=== PATIENT | male | born 1940 | race Caucasian/White ===

== ENCOUNTER → 2018-02-14 07:19 | Outpatient (CLI) | payer MEDICARE, BC, SELFPAY ==
[2018-02-14 10:41] LABS: Anion Gap 7 (5-15); BUN 17 mg/dL (7-18); BUN/Creat Ratio 18.7 RATIO (10-20); Calcium,Total 8.7 mg/dL (8.5-10.1); Chloride 106 mmol/L (98-107); Cholesterol 200 mg/dL (200); Creatinine, Serum 0.91 mg/dL (0.70-1.30); EST Glomerular Filtration Rate 86 mL/min (>60); Est Glom Filt Rate - Afr Amer 103 mL/min (>60); Glucose 107 mg/dL (74-106); High Density Lipoprotein 49 mg/dL; PSA,Total - Annual Screen 1.81 ng/mL (0.00-4.00); Potassium 4.3 mmol/L (3.5-5.1); Sodium Level 141 mmol/L (136-145); Triglycerides 60 mg/dL; Very Low Density Lipoprotein 12 mg/dL (5-40)
== END ==
PROVIDERS: Family Provider Family Medicine; PCP Family Medicine; Visit Provider Family Medicine
DX: I10 Essential (primary) hypertension (principal); N40.0 Benign prostatic hyperplasia without lower urinary tract symptoms; Z12.5 Encounter for screening for malignant neoplasm of prostate
CPT/HCPCS: 36415; 80048; 80061; 84153; G0103

== ENCOUNTER → 2018-04-12 14:08 | Outpatient (CLI) | payer MEDICARE, BC, SELFPAY ==
--- NOTE | 2018-04-12 | MISC_PTH ---
PATIENT: MARGIE LOPEZ LOC: [facility] U#:[id number] AGE/SX: 84/M ROOM: RE04/12/[address]: Dr. Vince Mac DDS : 1940 BED: DIS: SPEC #: [id number] RECD: 04/12/18 14:41 STATUS: [place] HELENA #: [id number] JOSÉ ANTONIO: 04/12/18 00:[address]: Vince Mac DEPT: SURGICAL PATHOLOGY RECD BY: Chevy Cordoba ENTERED: 04/12/18 14:42 SP TYPE: MISC NICK DR: Dr. Cleveland Rodriguez MD Tissues: Buccal mucosa, NOS Procedures: Special Stain Group I Surgery Specimen Level IV GMS Stain (control) HEADER OPERATION: Buccal (cheek) biopsy PRE-OP DIAGNOSIS: Left cheek lesion TISSUE SUBMITTED: Left buccal mucosa ? previous path MICROSCOPIC DIAGNOSIS Left buccal mucosa, biopsy: Fragment of squamous mucosa with acute and chronic inflammation and pseudoepitheliomatous hyperplasia. Negative for malignancy. Special stain for fungi is negative for organisms; matched control is appropriate. See comment. PATRICK:maninder 04/15/18 COMMENT Please make reference to previous specimen ([id number]) left cheek, biopsy with diagnosis of benign epidermal hyperplasia, chronic superficial dermatitis, no evidence of malignancy and negative for fungal organisms. MICROSCOPIC DESCRIPTION Slides are reviewed. GROSS DESCRIPTION Received in fixative is one container labeled with the patient's name and designated left cheek. The specimen consists of a piece of delong mucosal tissue measuring 1 x 0.3 cm and up to 0.5 cm in depth. The specimen is inked and submitted entirely in one cassette. / PATRICK:maninder 04/12/18 TC:2 CPT: 45806, [id number]
== END ==
PROVIDERS: Family Provider Family Medicine; PCP Family Medicine; Visit Provider Dentist Oral and Maxillofacial Surgery
DX: L98.9 Disorder of the skin and subcutaneous tissue, unspecified (principal)
CPT/HCPCS: 88305; 88312

== ENCOUNTER → 2018-08-12 08:47 | Outpatient (CLI) | payer MEDICARE, BC, SELFPAY ==
[2018-08-12 10:49] LABS: Anion Gap 4 (5-15); BUN 19 mg/dL (7-18); BUN/Creat Ratio 24.5 RATIO (10-20); Calcium,Total 8.8 mg/dL (8.5-10.1); Chloride 107 mmol/L (98-107); Creatinine, Serum 0.77 mg/dL (0.70-1.30); EST Glomerular Filtration Rate 103 mL/min (>60); Est Glom Filt Rate - Afr Amer 124 mL/min (>60); Glucose 103 mg/dL (74-106); Potassium 4.3 mmol/L (3.5-5.1); Sodium Level 142 mmol/L (136-145)
== END ==
PROVIDERS: Family Provider Family Medicine; PCP Family Medicine; Visit Provider Family Medicine
DX: I10 Essential (primary) hypertension (principal)
CPT/HCPCS: 36415; 80048

== ENCOUNTER → 2019-03-03 07:18 | Outpatient (CLI) | payer MEDICARE, BC, SELFPAY ==
[2019-03-03 10:15] LABS: Hematocrit 41.8 % (40-54); Hemoglobin 14.2 g/dl (13.0-16.5); Mean Corpuscular Hgb 29.6 pg (27.0-32.0); Mean Corpuscular Volume 87.3 fL (80-94); Mean Platelet Vol. 9.3 fl (6.2-12.0); Platelet Count 145 K/mm3 (150-450); RBC Distribution Width CV 13.6 % (11.6-14.6); RBC Distribution Width SD 42.3 fl (35.1-43.9); Red Blood Count 4.79 M/mm3 (4.6-6.2); White Blood Count 2.8 K/mm3 (4.4-11.0)
[2019-03-03 10:31] LABS: Scan Indicated on CBC? Y/N NO
[2019-03-03 10:39] LABS: Anion Gap 5 (5-15); BUN 18 mg/dL (7-18); BUN/Creat Ratio 18.8 RATIO (10-20); Calcium,Total 8.8 mg/dL (8.5-10.1); Chloride 102 mmol/L (98-107); Creatinine, Serum 0.96 mg/dL (0.70-1.30); EST Glomerular Filtration Rate 80 mL/min (>60); Est Glom Filt Rate - Afr Amer 97 mL/min (>60); Glucose 110 mg/dL (74-106); Potassium 4.2 mmol/L (3.5-5.1); Sodium Level 136 mmol/L (136-145); Thyroid Stim Hormone (TSH) 1.56 uIU/mL (0.358-3.74)
[2019-03-04 11:14] LABS: Magnesium 2.1 mg/dL (1.6-2.6)
== END ==
PROVIDERS: Family Provider Family Medicine; PCP Family Medicine; Referring Provider Family Medicine; Visit Provider Family Medicine
DX: R53.83 Other fatigue (principal)
CPT/HCPCS: 36415; 80048; 82306; 83735; 84443; 85027

== ENCOUNTER → 2019-03-11 | Outpatient (CLI) | payer MEDICARE, BC, SELFPAY ==
[2019-03-11 10:55] LABS: Magnesium 2.2 mg/dL (1.6-2.6)
[2019-03-11 10:59] LABS: Erythrocyte Sedimentation Rate 3 mm/hr (0-20)
== END | disposition home or self-care (01) ==
PROVIDERS: Family Provider Family Medicine; PCP Family Medicine; Referring Provider Family Medicine; Visit Provider Family Medicine
DX: R25.2 Cramp and spasm (principal)
CPT/HCPCS: 36415; 83735; 85652

== ENCOUNTER → 2019-07-24 15:31 | Outpatient (CLI) | payer MEDICARE, BC, SELFPAY ==
--- NOTE | 2019-07-24 15:34 | MRI_ITS ---
STUDY: MRI BRAIN WITHOUT CONTRAST REASON FOR EXAM: Male, 78 years old. Memory impairment for several months TECHNIQUE: Standardized multiplanar fat and water weighted pulse sequences were obtained. COMPARISON: None. FINDINGS: Mild atrophy and periventricular white matter ischemic changes without mass effect or restricted diffusion.. Normal bilateral basal ganglia. Normal thalami. There is no extra-axial fluid accumulation. Normal flow voids within the major intracranial circulation suggesting patency by spin echo criteria. Normal sella turcica, pituitary gland, infundibular stalk, optic chiasm and hypothalamus. Normal tectal plate and pineal gland. Normal midbrain, tree and medulla. Normal cerebellum. Normal basal cisterns. Normal bilateral temporal bones. Normal bilateral internal auditory canals. No demonstrated orbital abnormality, within the constraints of a routine brain study. Mild mucosal thickening of the anterior ethmoid and frontal sinuses.. Normal calvarium and skull base. Normal visualized soft tissue structures. Normal visualized upper cervical spine. MRI/Brain without Contrast IMPRESSION: Mild atrophy and periventricular white matter ischemic changes without evidence for acute infarct. Electronically Signed: Jose Newman MD at 17:10 EDT , Service support ,
== END ==
PROVIDERS: Family Provider Family Medicine; PCP Family Medicine; Referring Provider Family Medicine; Visit Provider Family Medicine
DX: R41.3 Other amnesia (principal)
CPT/HCPCS: 70551

== ENCOUNTER → 2019-09-23 10:14 | Outpatient (CLI) | payer MEDICARE, BC, SELFPAY ==
--- NOTE | 2019-09-23 10:14 | RAD_ITS ---
STUDY: X-RAY CHEST REASON FOR EXAM: Male, 78 years old. patient complains of cough x 1 month TECHNIQUE: PA and lateral views of the chest. COMPARISON: 10/06/2010 FINDINGS: Lungs are hyperexpanded. Granulomata of the right lung stable. There is no demonstrated pleural abnormality. Normal size heart. There are calcified right hilar lymph nodes. Normal visualized pulmonary arteries. There is atherosclerotic tortuosity of the aortic arch and descending thoracic aorta. There are diffuse degenerative changes of the visualized thoracic spine. Normal visualized ribs, clavicles, and shoulders. There is no demonstrated abnormality of the visualized soft tissue structures of the upper abdomen. RAD/Chest PA and Lateral IMPRESSION: No acute cardiopulmonary process. Hyperinflation suggesting chronic obstructive airway disease. Electronically Signed: Cj Abdalla MD (Bro[place]) at 16:10 EST , Service support ,
== END ==
PROVIDERS: Family Provider Family Medicine; PCP Family Medicine; Referring Provider Family Medicine; Visit Provider Family Medicine
DX: R05 Cough (principal)
CPT/HCPCS: 71046

== ENCOUNTER → 2020-01-12 14:35 | Outpatient (CLI) | payer MEDICARE, BC, SELFPAY ==
[2020-01-12 17:51] LABS: Absolute Lymphocyte Count 0.21 X10^3/uL (0.83-4.51); Absolute Neutrophil Count 2.3 X10^3/uL (2.0-7.7); Eosinophil# 0.02 X10^3/uL; Eosinophils% 0.7 % (0-5); Hematocrit 37.9 % (40-54); Hemoglobin 11.9 g/dL (13.0-16.5); Lymphocyte # 0.21 X10^3/ul (4.0); Lymphocyte % 7.1 % (19-41); Mean Corp Hgb Conc 31.4 g/dL (32-36); Mean Corpuscular Volume 89.2 fL (80-94); Mean Platelet Vol. 9.3 fl (6.2-12.0); Monocyte# 0.42 X10^3/uL; Monocyte% 14.3 % (0-10); NRBC Flagged by Analyzer 0 % (0-5); Neutrophil # 2.26 X10^3/uL (2.7-7.7); Neutrophil % 76.9 % (47-70); POSITIVE DIFFERENTIAL YES; Platelet Count 111 K/mm3 (150-450); RBC Distribution Width CV 14.3 % (11.6-14.6); RBC Distribution Width SD 46.5 fl (35.1-43.9); Red Blood Count 4.25 M/mm3 (4.6-6.2); White Blood Count 2.9 K/mm3 (4.4-11.0)
[2020-01-12 17:53] LABS: Differential Indicated SCAN CRITERIA MET
[2020-01-12 18:07] LABS: Erythrocyte Sedimentation Rate 9 mm/hr (0-20)
[2020-01-12 18:13] LABS: Vitamin B12 465 pg/mL (211-911); Vitamin D,25 Hydroxy 29.4 ng/mL
[2020-01-12 18:18] LABS: ALB/GLOB Ratio 1.1 RATIO (0.9-2.4); AST(SGOT) 123 U/L (15-37); Alanine Aminotransfer ALT/SGPT 124 U/L (16-61); Albumin, Serum 3.7 g/dL (3.2-5.0); Alkaline Phosphatase 195 U/L (45-117); Anion Gap 7 (5-15); BUN 17 mg/dL (7-18); BUN/Creat Ratio 16.8 RATIO (10-20); CPK Total, Creatine Kinase 132 U/L (39-308); Calcium,Total 8.6 mg/dL (8.5-10.1); Chloride 101 mmol/L (98-107); Creatinine, Serum 1.01 mg/dL (0.70-1.30); EST Glomerular Filtration Rate 75 mL/min (>60); Est Glom Filt Rate - Afr Amer 91 mL/min (>60); Globulin 3.3 g/dL (2.2-4.2); Glucose 93 mg/dL (74-106); Iron 31 ug/dL (65-175); Potassium 4.1 mmol/L (3.5-5.1); Sodium Level 135 mmol/L (136-145); Thyroid Stim Hormone (TSH) 1.05 uIU/mL (0.358-3.74)
[2020-01-12 18:23] LABS: Differential Comment SCANNED
[2020-01-14 14:00] LABS: Aldolase 13.7 U/L (3.3-10.3)
== END ==
LOC: MTLAB 14:39
PROVIDERS: PCP Family Medicine; Referring Provider Family Medicine; Visit Provider Family Medicine
DX: R53.83 Other fatigue (principal); R05 Cough; R25.2 Cramp and spasm; D50.9 Iron deficiency anemia, unspecified
CPT/HCPCS: 36415; 80053; 82085; 82306; 82550; 82607; 83540; 83735; 84403; 84443; 85025; 85652; 86140

== ENCOUNTER → 2020-01-15 13:25 | Outpatient (CLI) | payer MEDICARE, BC, SELFPAY ==
--- NOTE | 2020-01-15 13:30 | CT_ITS ---
STUDY: CT ABDOMEN WITHOUT CONTRAST REASON FOR EXAM: Male, 79 years old. Cough. Denies chest pain or SOB. Hx hypertension. RADIATION DOSAGE (If Supplied By Facility): CTDIvol = ( 14.76 ) mGy, DLP = ( 451.48 ) mGycm TECHNIQUE: Transaxial images were obtained without intravenous contrast, and without oral contrast. Sagittal and coronal images were reconstructed. Individualized dose optimization techniques were used for this CT. COMPARISON: Comparison is made with prior study dated September 23, 2012. FINDINGS: Minimal degree of bibasilar scarring. The visualized portions of the heart are within normal limits. Normal liver. There are multiple gallstones. There is moderate splenomegaly. Normal pancreas. Normal bilateral adrenal glands. Normal right kidney. Normal left kidney. Normal visualized stomach. Normal small intestine. There are multiple colonic diverticula consistent with diverticulosis. There is non-visualization of the appendix. There is diffuse atherosclerotic calcification of the abdominal aorta, without a demonstrated aneurysm. Normal inferior vena cava. Normal retroperitoneum. Nonspecific mild increased markings in the root of the mesentery. There is a small umbilical hernia containing fat. There are diffuse degenerative changes of the visualized lumbar spine. There is a 1.3 cm well-defined lucency at the posterior aspect of the L1 vertebrae. CT/Abdomen without IV Contrast IMPRESSION: Moderate splenomegaly. This is new as compared to prior study. Nonspecific mild degree of increased markings in the root of the mesenteric fat. Electronically Signed: Piter Bradley, at 14:40 EDT , Service support ,
--- NOTE | 2020-01-15 13:30 | CT_ITS ---
STUDY: CT CHEST WITHOUT CONTRAST REASON FOR EXAM: Male, 79 years old. Cough. Denies chest pain or SOB. Hx hypertension. RADIATION DOSAGE (If Supplied By Facility): CTDIvol = ( 10.71 ) mGy, DLP = ( 486.79 ) mGycm TECHNIQUE: Transaxial imaging was performed without the administration of intravenous contrast material. Multiplanar coronal and sagittal images were reformatted. Individualized dose optimization techniques were used for this CT. COMPARISON: Comparison is made with prior chest radiograph dated September 23, 2019. FINDINGS: Hyperinflation. Mild degree of emphysematous changes. Calcified granuloma in the anterior aspect of the right upper lobe. Mild scarring at the lung bases. There is a 1.3 cm pleural-based nodule in the lateral aspect of the anterior portion of the right lower lobe. This appears to be an area of scarring. There is no demonstrated pleural abnormality. There are calcifications of the coronary arteries. There are multiple small lymph nodes within the mediastinum, which are normal in size and morphology most compatible with reactive lymph hyperplasia. Calcified right hilar lymph nodes. Normal unenhanced pulmonary arteries. There is atherosclerotic calcification of the aortic arch . There are multi-level degenerative changes of the thoracic spine. Small hiatal hernia. Moderate splenomegaly. CT/Chest without Contrast IMPRESSION: 1.3 cm pleural-based nodule in the lateral aspect of the anterior portion of the right lower lobe. This appears to be an area of scarring. Moderate splenomegaly. Electronically Signed: Piter Bradley, at 14:45 EDT , Service support ,
== END ==
PROVIDERS: PCP Family Medicine; Referring Provider Family Medicine; Visit Provider Family Medicine
DX: R05 Cough (principal)
CPT/HCPCS: 71250; 74150

== ENCOUNTER → 2020-01-30 11:56 | Outpatient (CLI) | payer MEDICARE, BC, SELFPAY ==
[2020-01-27 14:04] VITALS: BMI 26.4
--- NOTE | 2020-01-30 12:09 | RAD_ITS ---
STUDY: X-RAY - LUMBAR SPINE REASON FOR EXAM: Male, 79 years old. Back pain. TECHNIQUE: 3 view(s) of the lumbar spine were obtained. COMPARISON: Comparison is made with prior study dated June 15, 2016. FINDINGS: There is straightening of the normal lumbar lordosis. There is no substantial scoliosis. There is a normal alignment of the vertebrae. There is multilevel endplate spondylosis of the lumbar vertebrae. There is mild degenerative disc disease with multi-level disc space narrowing. There is atherosclerotic calcification of the abdominal aorta without a demonstrated aneurysm. RAD/L/S Spine Min 4 Views IMPRESSION: Degenerative changes of the spine, as detailed above. Straightening of the normal lumbar lordosis. Electronically Signed: Piter Bradley, at 14:11 EDT , Service support ,
[2020-01-30 15:36] LABS: Prothrombin Time (Protime)PT. 12.5 SECONDS (11.7-14.9)
[2020-01-30 15:50] LABS: AST(SGOT) 111 U/L (15-37); Alanine Aminotransfer ALT/SGPT 129 U/L (16-61); Albumin, Serum 3.3 g/dL (3.2-5.0); Alkaline Phosphatase 511 U/L (45-117); Anion Gap 8 (5-15); BUN 23 mg/dL (7-18); BUN/Creat Ratio 20.2 RATIO (10-20); Calcium,Total 9.1 mg/dL (8.5-10.1); Chloride 96 mmol/L (98-107); Creatinine, Serum 1.14 mg/dL (0.70-1.30); EST Glomerular Filtration Rate 66 mL/min (>60); Est Glom Filt Rate - Afr Amer 79 mL/min (>60); GGTP 556 U/L (15-85); Globulin 3.3 g/dL (2.2-4.2); Glucose 98 mg/dL (74-106); PSA,Total - Annual Screen 0.96 ng/mL (0.00-4.00); Potassium 4.8 mmol/L (3.5-5.1); Protein, Total 6.6 g/dL (6.4-8.2); Rheumatoid Factor < 10.0 IU/mL (<15); Sodium Level 131 mmol/L (136-145)
[2020-01-30 15:58] LABS: BNP,B-Type NATRIURETIC PEPTIDE 36.4 pg/mL (0-100)
[2020-01-30 17:55] LABS: Osmolality, Serum 277 mOsm/KG (280-301)
[2020-02-02 15:57] LABS: ANTINUCLEAR ANTIBODIES DIRECT Negative (Negative)
[2020-02-04 14:07] LABS: Alkaline Phosphatase, Serum 509 IU/L (39-117); Bone Fraction 29 % (12-68); Intestinal Fraction 2 % (0-18); Liver Fraction 69 % (13-88)
[2020-02-04 15:57] LABS: Aldolase 11.5 U/L (3.3-10.3)
== END ==
PROVIDERS: PCP Family Medicine; Referring Provider Family Medicine; Visit Provider Family Medicine
DX: M89.9 Disorder of bone, unspecified (principal); R79.89 Other specified abnormal findings of blood chemistry; R05 Cough; R25.2 Cramp and spasm; N40.0 Benign prostatic hyperplasia without lower urinary tract symptoms; E87.1 Hypo-osmolality and hyponatremia; R53.83 Other fatigue
CPT/HCPCS: 36415; 72110; 80053; 82085; 82533; 82977; 83880; 83930; 84075; 84080; 84153; 85610; 85730; 86038; 86140; 86431; G0103

== ENCOUNTER → 2020-02-03 12:38 | Outpatient (CLI) | payer MEDICARE, BC, SELFPAY ==
[2020-01-27 14:04] VITALS: BMI 26.4
[2020-02-03 12:58] LABS: Bacteria 0 SEEN /hpf (None Seen); Mucous, Urine 0 SEEN /hpf (<or=2+)
[2020-02-03 15:06] LABS: Color, Urine Yellow (Yellow); Glucose, Dipstick Normal (Normal); Ketone-Dipstick 5 mg/dl (Negative); Leukocyte Esterase-Dipstick 25 /ul (Negative); Nitrite-Dipstick Negative (Negative); Occult Blood-Urine 10 /ul (Negative); Protein-Dipstick 15 mg/dl (Negative); Specific Gravity, Urine 1.015 (1.002-1.030); Urine Bilirubin Dipstick Negative (Negative); Urine Clarity Sl. Cloudy (Clear); Urine Urobilinogen 1 mg/dl (Normal)
[2020-02-03 15:10] LABS: Urine Sodium 32 mmol/L (Not Establ.)
[2020-02-03 15:14] LABS: Red Blood Cells-Urine 0-5 SEEN /hpf (0-5); White Blood Cells 0-5 SEEN /hpf (0-5)
[2020-02-03 15:15] LABS: Squamous Epithelial Cells - UA 0-5 SEEN /hpf (0-5)
[2020-02-03 15:23] LABS: Ammonia < 10.0 umol/L (11-32)
[2020-02-03 15:30] LABS: AST(SGOT) 162 U/L (15-37); Alanine Aminotransfer ALT/SGPT 154 U/L (16-61); Albumin, Serum 3.2 g/dL (3.2-5.0); Alkaline Phosphatase 609 U/L (45-117); Amylase 46 U/L (25-115); Anion Gap 8 (5-15); BUN 23 mg/dL (7-18); BUN/Creat Ratio 20.4 RATIO (10-20); Bilirubin, Direct 2.09 mg/dL (0.00-0.30); Chloride 98 mmol/L (98-107); Creatinine, Serum 1.13 mg/dL (0.70-1.30); EST Glomerular Filtration Rate 66 mL/min (>60); Est Glom Filt Rate - Afr Amer 80 mL/min (>60); Globulin 3.1 g/dL (2.2-4.2); Glucose 100 mg/dL (74-106); Lipase 149 U/L (73-393); Potassium 4.8 mmol/L (3.5-5.1); Protein, Total 6.3 g/dL (6.4-8.2); Sodium Level 132 mmol/L (136-145)
[2020-02-05 16:07] LABS: HEPATITIS B SURFACE AG Negative (Negative); Hepatitis A AB, Total Negative (Negative); Hepatitis A IgM Antibody Negative (Negative); Hepatitis B Core AB IgM Negative (Negative); Hepatitis B Core Ab Total Negative (Negative); Hepatitis C Ab <0.1 s/co ratio (0.0-0.9)
[2020-02-06 00:42] LABS: EBV Acute VCA IgM > 160.0 U/mL (0.0-35.9); EBV-VCA IgG > 600.0 U/mL (0.0-17.9); Hep B Surface Antibodies Non Reactive (.)
== END ==
PROVIDERS: PCP Family Medicine; Referring Provider Family Medicine; Visit Provider Family Medicine
DX: R79.89 Other specified abnormal findings of blood chemistry (principal); R17 Unspecified jaundice; E87.1 Hypo-osmolality and hyponatremia
CPT/HCPCS: 36415; 80053; 81001; 82140; 82150; 82248; 83690; 84300; 86664; 86665; 86704; 86705; 86706; 86708; 86709; 86803; 87340

== ENCOUNTER → 2020-02-03 16:03 | Outpatient (CLI) | payer MEDICARE, BC, SELFPAY ==
[2020-01-27 14:04] VITALS: BMI 26.4
--- NOTE | 2020-02-03 16:05 | US_ITS ---
ACR Level 3 findings have been noted. An addendum which confirms receipt of the report will follow. STUDY: ABDOMINAL ULTRASOUND - RIGHT UPPER QUADRANT REASON FOR VISIT: Male, 79 years old JAUNDICE TECHNIQUE: Ultrasound evaluation of the right upper quadrant was performed with real-time and static mckeon-scale imaging. TECHNICAL QUALITY: Adequate. COMPARISON: CT abdomen and pelvis September 15, 2020, September 23, 2012 CT scan abdomen and pelvis. FINDINGS: Liver: The liver measures 19.6 cm. There is increased echogenicity consistent with fatty infiltration. The bile ducts are within normal limits. There is hepatic color flow. The direction of portal flow is hepatopetal. There is no demonstrated mass lesion. Gallbladder: The gallbladder is distended. There is abnormal wall thickening of the gallbladder measuring up to 4.6 to 6 mm. There is initially sluggish within the gallbladder. . There is a negative sonographic Hastings''s sign. There is no pericholecystic fluid. There is sludge and possible small punctate stones in the dependent portion of the gallbladder. Common Bile Duct (C.B.D.): The common bile duct measures 5. mm. Pancreas: Normal size of the head, body and tail of the pancreas. There is normal echogenicity of the pancreas. There is no demonstrated pancreatic mass or cyst. Right Kidney: Normal size of the right kidney. The right kidney measures 11.8 x 5.8 x 5.0 cm. Normal renal cortex. The right cortex measures 1.4 cm. There is a lower pole right side. Pelvic cyst measuring 1.2 x 1.7 cm. There is no right hydronephrosis. US/Abdomen Limited IMPRESSION: Abnormal wall thickening of the gallbladder suspicious for possible chronic cholecystitis versus acute cholecystitis or potentially xanthogranulomatous cholecystitis. The sonographic Hastings''s sign is described as negative. The common duct is distended up to 5.9 mm. The liver is enlarged fatty infiltrated similar in appearance to prior study. Similar-appearing right renal cyst or nonspecific distention of a calyx. Stable since January 14, Slightly greater in size since September 23, 2012 CT scan abdomen and pelvis. Electronically Signed: Connie Neff MD at 5:36 EDT Tel , Service support ,
== END ==
PROVIDERS: PCP Family Medicine; Visit Provider Family Medicine
DX: R17 Unspecified jaundice (principal); R79.89 Other specified abnormal findings of blood chemistry; E87.1 Hypo-osmolality and hyponatremia
CPT/HCPCS: 36415; 76705; 80053; 81001; 82140; 82150; 82248; 83690; 84300; 86664; 86665; 86704; 86705; 86706; 86708; 86709; 86803; 87340

== ENCOUNTER → 2020-02-04 15:51 | Outpatient (CLI) | payer MEDICARE, BC, SELFPAY ==
[2020-01-27 14:04] VITALS: BMI 26.4
[2020-02-04 17:56] LABS: Erythrocyte Sedimentation Rate 11 mm/hr (0-20)
[2020-02-06 18:09] LABS: ANTINUCLEAR ANTIBODIES DIRECT Negative (Negative); Anti-Mitochondrial AB <20.0 Units (0.0-20.0)
[2020-02-06 18:10] LABS: Anti-Smooth Muscle ABS 11 Units (0-19)
== END ==
PROVIDERS: PCP Family Medicine; Referring Provider Internal Medicine Gastroenterology; Visit Provider Internal Medicine Gastroenterology
DX: K75.9 Inflammatory liver disease, unspecified (principal)
CPT/HCPCS: 36415; 83516; 85652; 86038

== ENCOUNTER → 2020-02-10 12:27 | Outpatient (CLI) | payer MEDICARE, BC, SELFPAY ==
[2020-01-27 14:04] VITALS: BMI 26.4
--- NOTE | 2020-02-10 13:00 | MRI_ITS ---
STUDY: MR MRCP WITHOUT CONTRAST REASON FOR EXAM: Male, 79 years old. JAUNDICE, ELEVATED LFT''S TECHNIQUE: Standard MRCP technique was utilized. COMPARISON: Ultrasound 02/03/2020 FINDINGS: Gall Bladder: Normal with no distention or demonstrated fixed intraluminal filling defect. Cystic duct: Normal with no demonstrated fixed filling defect. Intrahepatic ducts: Normal visualized intrahepatic ducts with no demonstrated fixed filling defect, dilation or stricture. Common hepatic duct: Normal with no demonstrated fixed filling defect, dilation or stricture. Common bile duct: Normal with no demonstrated fixed filling defect, dilation or stricture. Pancreatic duct: Normal with no demonstrated fixed filling defect, dilation or stricture. MRI/MRCP Abdomen without Contrast IMPRESSION: Normal MR Cholangiopancreatography (MRCP). Electronically Signed: Kunal Velasquez MD at 14:07 EDT Tel , Service support ,
[2020-02-10 16:00] LABS: AST(SGOT) 112 U/L (15-37); Alanine Aminotransfer ALT/SGPT 96 U/L (16-61); Alkaline Phosphatase 411 U/L (45-117); Anion Gap 11 (5-15); BUN 27 mg/dL (7-18); BUN/Creat Ratio 21.4 RATIO (10-20); Bilirubin, Direct 2.37 mg/dL (0.00-0.30); Calcium,Total 8.7 mg/dL (8.5-10.1); Chloride 95 mmol/L (98-107); Creatinine, Serum 1.26 mg/dL (0.70-1.30); EST Glomerular Filtration Rate 58 mL/min (>60); Est Glom Filt Rate - Afr Amer 71 mL/min (>60); Globulin 2.9 g/dL (2.2-4.2); Glucose 118 mg/dL (74-106); Potassium 4.5 mmol/L (3.5-5.1); Protein, Total 5.9 g/dL (6.4-8.2); Sodium Level 130 mmol/L (136-145)
== END ==
PROVIDERS: PCP Family Medicine; Referring Provider Internal Medicine Gastroenterology; Visit Provider Internal Medicine Gastroenterology
DX: R79.89 Other specified abnormal findings of blood chemistry (principal); R17 Unspecified jaundice
CPT/HCPCS: 36415; 74181; 80053; 82248; 86140

== ENCOUNTER 2020-02-17 11:32 | Emergency (ER) | payer MEDICARE, BC, SELFPAY ==
[2020-01-27 14:04] VITALS: BMI 26.4
[2020-02-17] VITALS (13 sets, daily range): BP systolic 100–150; BP diastolic 50–70; PULSE 102–114; RESP 16–26; TEMP 36.3–37.2; O2SAT 92–99; BMI 25.1
--- NOTE | 2020-02-17 12:16 | EKG12_ITS ---
Test Reason : WEAKNESS, HAS MONO Blood Pressure : / mmHG Vent. Rate : 104 BPM Atrial Rate : 104 BPM P-R Int : 176 ms QRS Dur : 086 ms QT Int : 348 ms P-R-T Axes : 055 -34 031 degrees QTc Int : 457 ms Sinus tachycardia Left axis deviation Abnormal ECG Confirmed by GALO MATAMOROS ([id number]), business editor MYLENE BROTHERS ([id number]) on 02/19/2020 2:20:09 PM Referred By: BERYL Confirmed By:GALO MATAMOROS
[2020-02-17 12:37] LABS: Hematocrit 20.9 % (40-54); Hemoglobin 6.8 g/dL (13.0-16.5); Mean Corp Hgb Conc 32.5 g/dL (32-36); Mean Corpuscular Hgb 27.2 pg (27.0-32.0); Mean Corpuscular Volume 83.6 fL (80-94); Mean Platelet Vol. 11.4 fl (6.2-12.0); POSITIVE COUNT YES; RBC Distribution Width CV 18.6 % (11.6-14.6); RBC Distribution Width SD 50.6 fl (35.1-43.9); White Blood Count 3.4 K/mm3 (4.4-11.0)
[2020-02-17 12:55] LABS: Platelet Count 38 K/mm3 (150-450); Scan Indicated on CBC? Y/N YES- FLAGS NOTED
[2020-02-17 13:01] LABS: AST(SGOT) 159 U/L (15-37); Alanine Aminotransfer ALT/SGPT 108 U/L (16-61); Albumin, Serum 2.5 g/dL (3.2-5.0); Alkaline Phosphatase 268 U/L (45-117); Anion Gap 10 (5-15); BUN 36 mg/dL (7-18); Calcium,Total 8.1 mg/dL (8.5-10.1); Chloride 98 mmol/L (98-107); Creatinine, Serum 1.16 mg/dL (0.70-1.30); EST Glomerular Filtration Rate 64 mL/min (>60); Est Glom Filt Rate - Afr Amer 78 mL/min (>60); Estimated Creatinine Clearance 49.94 ml/min; Globulin 2.4 g/dL (2.2-4.2); Glucose 110 mg/dL (74-106); Lipase 270 U/L (73-393); Potassium 4.4 mmol/L (3.5-5.1); Protein, Total 4.9 g/dL (6.4-8.2); Sodium Level 129 mmol/L (136-145); Thyroid Stim Hormone (TSH) 0.81 uIU/mL (0.358-3.74)
[2020-02-17 13:12] LABS: Ammonia < 10.0 umol/L (11-32)
[2020-02-17 13:22] LABS: Mucous, Urine 0 SEEN /hpf (<or=2+); Squamous Epithelial Cells - UA 0 SEEN /hpf (0-5)
[2020-02-17 13:37] LABS: International Normalized Ratio 1.1; Prothrombin Time (Protime)PT. 14.1 SECONDS (11.7-14.9)
[2020-02-17 13:39] LABS: Partial Thromboplast Time 33.1 Seconds (24.1-36.2)
[2020-02-17 13:53] LABS: Color, Urine Yellow (Yellow); Glucose, Dipstick Normal (Normal); Ketone-Dipstick 5 mg/dl (Negative); Leukocyte Esterase-Dipstick 25 /ul (Negative); Nitrite-Dipstick Negative (Negative); Occult Blood-Urine 25 /ul (Negative); Protein-Dipstick 30 mg/dl (Negative); Urine Clarity Sl. Cloudy (Clear); Urine Urobilinogen 1 mg/dl (Normal)
--- NOTE | 2020-02-17 13:53 | ED.DCSUM_ITS ---
- ER Visit Summary Date of Service: 02/17/20 Chief Complaint: Fatigued History of Present Illness: The patient is a 79 M who is a patient of Valentin King, and [place]. He has had low energy for 6 weeks, worse over the last 3 weeks. He has been jaundiced and had elevated liver enzymes. He was found to have low blood counts and an enlarged spleen. He had a positive mono test. He had MRCP done as an outpatient and this was unremarkable. He also had other testing like chest x-rays. Nothing so far to suggest malignancy. They are unsure why his labs have been abnormal. He was sent for worsening symptoms. Physical Examination: Afebrile and vital signs unremarkable except for heart rate of 114. The patient is jaundiced but in no acute distress. Heart tachycardic but regular. No respiratory distress. Abdomen is soft and nontender. Extremities nontender with no edema. Test Results: EKG showed sinus rhythm at a rate of 104. White count 3.4, hemoglobin 6.8, platelets 38. Sodium 129, glucose 110, BUN 36, total bilirubin 4.5, alkaline phosphatase 268, ALT 108, AST 159. Lipase normal. Coags normal. Troponin normal. Ammonia normal. TSH normal. Emergency Department Course and Treatment: Patient presents with increasing fatigue and jaundice. His work-up indicates an increasing pancytopenia. He is at the point where he will likely need blood transfusion. I am suspicious for some type of malignancy that has not shown up so far on his testing. I have paged hematology oncology for further recommendations. If the patient needs transferred, the family would request [facility]. I spoke with his machinist helper marine who advised that we cannot work-up the patient here. He recommended admission here and he will likely need a bone marrow biopsy. He feels that the patient likely has some chronic liver failure and then the superimposed pancytopenia. He advised transfusing 2 units of packed red cells. No platelets at this time as he is not bleeding. I spoke with the hospitalist who will discuss with hematology prior to admission. Hospitalist was not comfortable admitting the patient to this facility because of the patient's liver disease. We will contact for transfer. Treatment Plan: As above. Disposition: Transfer pending Impression: Pancytopenia Jaundice Hyponatremia This note was generated with [employer] software. It may contain incorrect words, spelling, and punctuation that were not noted in review of the chart prior to signing ED Disposition - Plan for ED Patient: Referrals: Willis Rodriguez MD [Primary Care Provider] -
[2020-02-17 13:56] LABS: Urine Bilirubin Dipstick 1 mg/dL (Negative)
[2020-02-17 14:03] LABS: Amorphous Sediment 1+; Bacteria 2+ /hpf (None Seen); Red Blood Cells-Urine 0-5 SEEN /hpf (0-5); White Blood Cells 0-5 SEEN /hpf (0-5)
== END 2020-02-17 18:19 | disposition short-term general hospital (02) ==
PROVIDERS: Emergency Provider Emergency Medicine; PCP Family Medicine
DX: D61.818 Other pancytopenia (principal); R17 Unspecified jaundice; E87.1 Hypo-osmolality and hyponatremia; I10 Essential (primary) hypertension; F03.90 Unspecified dementia, unspecified severity, without behavioral disturbance, psychotic disturbance, mood disturbance, and anxiety; Z72.0 Tobacco use; D64.9 Anemia, unspecified
CPT/HCPCS: 36430; 80053; 81001; 82140; 83690; 84443; 84484; 85027; 85610; 85730; 86850; 86900; 86901; 86920; 86922; 93005; 99284; J7030; J7040; P9016; A4216

== ENCOUNTER → 2020-02-24 09:26 | Outpatient (CLI) | payer MEDICARE, BC, SELFPAY ==
[2020-02-17 11:37] VITALS: BMI 25.1
[2020-02-24 12:15] LABS: Hematocrit 23.5 % (40-54); Hemoglobin 7.6 g/dL (13.0-16.5); Mean Corp Hgb Conc 32.3 g/dL (32-36); Mean Corpuscular Hgb 27.2 pg (27.0-32.0); Mean Corpuscular Volume 84.2 fL (80-94); Mean Platelet Vol. 11.1 fl (6.2-12.0); POSITIVE COUNT YES; POSITIVE DIFFERENTIAL YES; POSITIVE MORPHOLOGY YES; Platelet Count 33 K/mm3 (150-450); RBC Distribution Width SD 53.6 fl (35.1-43.9); Red Blood Count 2.79 M/mm3 (4.6-6.2); White Blood Count 3.5 K/mm3 (4.4-11.0)
[2020-02-24 12:17] LABS: Differential Indicated MANUAL DIFF
[2020-02-24 12:37] LABS: Anisocytosis 1+; Lymphocyte 14 % (19-41); Metamyelocyte 1 % (0-1); Monocyte 6 % (0-10); Neutrophil-Band 6 % (0-5); Neutrophil-Segmented 73 % (47-70); Red Cell Morphology N CHROM NORMAL (NORM C&C); Total Cells Counted 100 (MANUAL DIFF)
[2020-02-24 12:38] LABS: Platelet Estimate MKD DEC (ADEQ)
[2020-02-24 12:40] LABS: Absolute Lymphocyte Count 0.49 X10^3/uL (0.83-4.51); Absolute Neutrophil Count 2.8 X10^3/uL (2.0-7.7)
[2020-02-24 14:15] LABS: ALB/GLOB Ratio 1.2 RATIO (0.9-2.4); AST(SGOT) 253 U/L (15-37); Alanine Aminotransfer ALT/SGPT 187 U/L (16-61); Albumin, Serum 2.5 g/dL (3.2-5.0); Alkaline Phosphatase 336 U/L (45-117); Anion Gap 14 (5-15); BUN 42 mg/dL (7-18); BUN/Creat Ratio 38.9 RATIO (10-20); Calcium,Total 8.6 mg/dL (8.5-10.1); Chloride 103 mmol/L (98-107); Creatinine, Serum 1.08 mg/dL (0.70-1.30); EST Glomerular Filtration Rate 70 mL/min (>60); Est Glom Filt Rate - Afr Amer 84 mL/min (>60); Ferritin 8149 ng/mL (26-388); Globulin 2.1 g/dL (2.2-4.2); Glucose 112 mg/dL (74-106); Potassium 4.6 mmol/L (3.5-5.1); Protein, Total 4.6 g/dL (6.4-8.2); Sodium Level 137 mmol/L (136-145)
[2020-02-25 09:41] LABS: Thyroid Peroxidase AB 12 IU/mL (0-34)
[2020-02-25 12:26] LABS: Pathologist Review Reviewed
== END ==
PROVIDERS: PCP Family Medicine; Visit Provider Family Medicine
DX: R79.89 Other specified abnormal findings of blood chemistry (principal)
CPT/HCPCS: 36415; 80053; 82728; 85025; 86376

== ENCOUNTER → 2020-02-26 12:18 | Outpatient (CLI) | payer MEDICARE, BC, SELFPAY ==
[2020-02-17 11:37] VITALS: BMI 25.1
--- NOTE | 2020-02-26 12:20 | US_ITS ---
STUDY: ABDOMINAL ULTRASOUND - RIGHT UPPER QUADRANT REASON FOR VISIT: Male, 79 years old DILATED HEPATICS / IVC EVAL FOR PASQUALE CORNELLOUMAR - PER DR TAPIA TECHNIQUE: Ultrasound evaluation of the right upper quadrant was performed with real-time and static mckeon-scale imaging. TECHNICAL QUALITY: Adequate. COMPARISON: Comparison is made with prior ultrasound of the abdomen dated February 03, 2020. FINDINGS: Liver: The liver is mildly enlarged and measures 18 cm. There is normal echogenicity of the liver. The bile ducts are within normal limits. There is hepatic color flow. The direction of portal flow is hepatopetal. There is no demonstrated mass lesion. Veins are not distended. The IVC is within normal limits. Gallbladder: Normal distended gallbladder. The gallbladder wall is thickened and measures 5.3 mm. There is a negative sonographic Hastings''s sign. There is pericholecystic fluid. There are no gallstones. Sludge is seen within the gallbladder lumen. Common Bile Duct (C.B.D.): The common bile duct measures 5.0 mm. Pancreas: Normal size of the head, body of the pancreas. The tibial portion is obscured due to overlying bowel gas. There is normal echogenicity of the pancreas. There is no demonstrated pancreatic mass or cyst. Right Kidney: Normal size of the right kidney. The right kidney measures 11.4 cm x 5.1 cm x 5 cm. Normal renal cortex. The right cortex measures 1.3 cm. There is a 1.6 cm x 2.1 cm x 1.5 cm renal cyst. There is no right hydronephrosis. Incidental note is made of splenomegaly. The spleen measures 19.9 cm x 7.4 cm x 11.1 cm US/Abdomen Limited IMPRESSION: Sludge is seen within the gallbladder lumen with a small amount of pericholecystic fluid. The gallbladder wall is thickened. Right renal cyst. The hepatic veins and IVC are normal. Splenomegaly. Electronically Signed: Piter Tapia, at 13:36 EDT , Service support ,
[2020-02-26 13:17] LABS: Hematocrit 21.3 % (40-54); Hemoglobin 6.9 g/dL (13.0-16.5); Mean Corp Hgb Conc 32.4 g/dL (32-36); Mean Corpuscular Hgb 27.8 pg (27.0-32.0); Mean Corpuscular Volume 85.9 fL (80-94); Mean Platelet Vol. 12.2 fl (6.2-12.0); POSITIVE COUNT YES; POSITIVE DIFFERENTIAL YES; POSITIVE MORPHOLOGY YES; RBC Distribution Width CV 20.3 % (11.6-14.6); RBC Distribution Width SD 54.7 fl (35.1-43.9); Red Blood Count 2.48 M/mm3 (4.6-6.2); White Blood Count 2.7 K/mm3 (4.4-11.0)
[2020-02-26 13:28] LABS: International Normalized Ratio 1.3; Prothrombin Time (Protime)PT. 15.6 SECONDS (11.7-14.9)
[2020-02-26 13:29] LABS: Partial Thromboplast Time 30.2 Seconds (24.1-36.2)
[2020-02-26 13:49] LABS: AST(SGOT) 187 U/L (15-37); Alanine Aminotransfer ALT/SGPT 156 U/L (16-61); Albumin, Serum 2.2 g/dL (3.2-5.0); Alkaline Phosphatase 329 U/L (45-117); Anion Gap 10 (5-15); BUN 44 mg/dL (7-18); BUN/Creat Ratio 37.6 RATIO (10-20); Calcium,Total 8.3 mg/dL (8.5-10.1); Chloride 102 mmol/L (98-107); Creatinine, Serum 1.17 mg/dL (0.70-1.30); EST Glomerular Filtration Rate 64 mL/min (>60); Est Glom Filt Rate - Afr Amer 77 mL/min (>60); Globulin 2.2 g/dL (2.2-4.2); Glucose 119 mg/dL (74-106); Potassium 4.1 mmol/L (3.5-5.1); Protein, Total 4.4 g/dL (6.4-8.2); Sodium Level 135 mmol/L (136-145)
[2020-02-26 14:28] LABS: Differential Indicated MANUAL DIFF
[2020-02-26 14:30] LABS: NRBC Flagged by Analyzer 0.7 % (0-5)
[2020-02-26 14:32] LABS: Platelet Count 25 K/mm3 (150-450)
[2020-02-26 14:40] LABS: Blast 2 % (0-0); Lymphocyte 7 % (19-41); Metamyelocyte 1 % (0-1); Monocyte 15 % (0-10); Myelocyte 4 (0-0); Neutrophil-Segmented 71 % (47-70); Platelet Estimate MKD DEC (ADEQ); Total Cells Counted 100 (MANUAL DIFF)
[2020-02-26 14:41] LABS: Anisocytosis 1+; Red Cell Morphology N CHROM NORMAL (NORM C&C)
[2020-02-26 14:42] LABS: Absolute Neutrophil Count 1.9 X10^3/uL (2.0-7.7)
[2020-03-01 12:05] LABS: Pathologist Review Reviewed
== END ==
PROVIDERS: PCP Family Medicine; Referring Provider Internal Medicine Hematology & Oncology; Visit Provider Internal Medicine Hematology & Oncology
DX: R16.1 Splenomegaly, not elsewhere classified (principal); D61.818 Other pancytopenia; R17 Unspecified jaundice; R63.0 Anorexia
CPT/HCPCS: 36415; 76705; 80053; 85025; 85610; 85730